=== PATIENT | female | born 1980 | race Caucasian/White ===

== ENCOUNTER 2017-10-15 07:25 | Emergency (ER) | payer SELFPAY ==
[2017-10-15] MEDS ORDERED: HYDROcodone/Acetaminophen 5/325 mg Tablet ONE (07:35)
[2017-10-15] MEDS ORDERED: Ketorolac Tromethamine 60 MG/2 ML VIAL ONE (07:36)
[2017-10-15] MEDS ORDERED: Cyclobenzaprine 10 MG TAB ONE (07:36)
[2017-10-15] MEDS ORDERED: Ketorolac Tromethamine 60 MG/2 ML VIAL IM SCH (07:45)
[2017-10-15] MEDS ORDERED: HYDROcodone/Acetaminophen 5/325 mg Tablet PO SCH (07:45)
[2017-10-15] MEDS ORDERED: Cyclobenzaprine 10 MG TAB PO SCH (07:45)
--- NOTE | 2017-10-15 09:01 | RAD ---
AP VIEW OF THE CHEST: INDICATION: Chest pain predominantly within the shoulder blade worse over the last several days. COMPARISON: Prior exam dated 04/12/16. FINDINGS: Heart size is accentuated by the exam technique. The lungs are clear. No pleural effusion or pneumo thorax is evident. No acute osseous abnormality is evident. IMPRESSION: No acute cardiopulmonary abnormality. POS: [facility]
== END 2017-10-15 09:00 | disposition home or self-care (01) ==
LOC: ERS 07:25
DX: M62.830 Muscle spasm of back (principal); F17.210 Nicotine dependence, cigarettes, uncomplicated
CPT/HCPCS: 71045; 93005; 96372; J1885